=== PATIENT | male | born 1980 | race Two or more races ===

== ENCOUNTER 2019-04-14 22:05 | Emergency (ER) | payer SELFPAY ==
[~2019-04-14] VITALS: Ht 180.3 cm; Wt 99.8 kg
[2019-04-15 01:11] VITALS: BP 148/94
[2019-04-15] MEDS ORDERED: LIDOCAINE 1% HCL (LOCAL ANESTH.) INJ 20ML MDV IJ ONE (02:45)
[2019-04-15] MEDS ORDERED: cefTRIAXone SOD 1,000 MG VL IM ONE (03:40)
[2019-04-15] MEDS ORDERED: TETANUS-DIPTH-ACEL PERTUSSIS 0.5ML SYRG IM ONE (03:40)
== END 2019-04-15 04:03 | disposition home or self-care (01) ==
LOC: ER 22:11
DX: L03.012 Cellulitis of left finger (principal); R51 Headache; F17.210 Nicotine dependence, cigarettes, uncomplicated
CPT/HCPCS: 10060; 73140; 90471; 90715; 96372; 99283; C1887; J0696

== ENCOUNTER 2022-01-02 10:10 | Inpatient (IN) | payer MEDICAID, OTHER ==
[~2022-01-02] VITALS: Ht 180.3 cm; Wt 111.1 kg
[2022-01-02 11:48] LABS: Basophils # (auto) 0.1 10 ^3/uL (0-0.2); Basophils % (auto) 0.7 % (0.0-2.0); Eosinophils # (auto) 0.2 10 ^3/uL (0-0.8); Eosinophils % (auto) 1.6 % (0.0-7.0); Hematocrit 47.6 % (41.0-53.0); Hemoglobin 16.5 g/dL (13.5-17.5); Lymphocytes # (auto) 2.3 10 ^3/uL (0.4-5.4); Mean Corpuscular Hgb Conc. 34.6 g/dL (32.0-36.0); Mean Corpuscular Volume 92.6 fL (80.0-100.0); Monocytes # (auto) 1.2 10 ^3/uL (0-1.3); Monocytes % (auto) 8.8 % (0.0-12.0); Neutrophils # (auto) 9.7 10 ^3/uL (1.6-8.6); Neutrophils % (auto) 71.9 % (37.0-80.0); Nucleated Red Blood Cells % 0.1 %; Red Blood Cells 5.15 10^6/uL (4.5-5.90); Red Cell Distribution Width 12.6 % (11.8-14.3); White Blood Cell 13.5 10^3/uL (4.4-10.8)
[2022-01-02 12:30] LABS: Urine Bacteria NONE SEEN /hpf (None Seen); Urine Blood Negative /uL (Negative); Urine Mucus FEW (None Seen); Urine Specific Gravity 1.027 (1.001-1.035); Urine WBC 3 /hpf (0 - 3)
[2022-01-02 12:31] LABS: Albumin 3.4 g/dL (3.4-5.0); BUN/Creatinine Ratio 12.1; Calcium 8.9 mg/dL (8.5-10.1); Potassium 4.1 mmol/L (3.5-5.1)
[2022-01-02 12:34] LABS: Bilirubin, Total 0.7 mg/dL (0.2-1.0); Total Protein 7.7 g/dL (6.4-8.2)
[2022-01-02] MEDS ORDERED: CLINDAMYCIN 900MG IV 50 ML IV ONE (17:15)
[2022-01-02] MEDS ORDERED: IOHEXOL 300 MG/ML 100ML BOTTLE IJ ONE (17:52)
[2022-01-02] MEDS ORDERED: cefTRIAXone 1GM/50ML D5W 50 ML IV ONE (22:45)
[2022-01-02] MEDS ORDERED: MORPHINE SULFATE INJ 2 MG/ml SYRG IV PRN (22:45)
[2022-01-02] MEDS ORDERED: ONDANSETRON HCL 4 MG/2 ML VIAL IV PRN (22:45)
[2022-01-02] MEDS ORDERED: ACETAMINOPHEN 325 MG TAB PO PRN (22:45)
[2022-01-03] VITALS (7 sets, daily range): BP systolic 110–138; BP diastolic 74–96
[2022-01-03] MEDS ORDERED: INFLUENZA QUAD 2021-2022 0.5 ML SYRG IM ONE (05:30)
[2022-01-03] MEDS ORDERED: PNEUMOCOCCAL VACC POLYS 25 MCG/0.5 ML VIAL SUBCUT ONE (05:30)
[2022-01-03] MEDS: CLINDAMYCIN 600MG IV 50 ML IV SCH ×3 (05:49→21:29)
[2022-01-03 06:41] LABS: BUN/Creatinine Ratio 11.4; Calcium 8.7 mg/dL (8.5-10.1); Potassium 4.1 mmol/L (3.5-5.1)
[2022-01-03 06:47] LABS: Basophils # (auto) 0 10 ^3/uL (0-0.2); Basophils % (auto) 0.4 % (0.0-2.0); Eosinophils # (auto) 0.3 10 ^3/uL (0-0.8); Eosinophils % (auto) 2.5 % (0.0-7.0); Hematocrit 43.5 % (41.0-53.0); Hemoglobin 15.3 g/dL (13.5-17.5); Lymphocytes # (auto) 1.6 10 ^3/uL (0.4-5.4); Lymphocytes % (auto) 12.4 % (10.0-50.0); Mean Corpuscular Hemoglobin 32.3 pg (28.0-32.0); Mean Corpuscular Hgb Conc. 35.2 g/dL (32.0-36.0); Mean Corpuscular Volume 91.9 fL (80.0-100.0); Monocytes # (auto) 1.3 10 ^3/uL (0-1.3); Monocytes % (auto) 10.7 % (0.0-12.0); Neutrophils # (auto) 9.3 10 ^3/uL (1.6-8.6); Nucleated Red Blood Cells % 0.1 %; Red Blood Cells 4.73 10^6/uL (4.5-5.90); Red Cell Distribution Width 12.4 % (11.8-14.3); White Blood Cell 12.6 10^3/uL (4.4-10.8)
[2022-01-03] MEDS: cefTRIAXone 1GM/50ML D5W 50 ML IV SCH (09:00)
[2022-01-03] MEDS: ENOXAPARIN SOD 40 MG/0.4 ML SYRINGE SC SCH (10:00)
[2022-01-03] MEDS ORDERED: PANTOPRAZOLE 40 MG TAB PO SCH (10:00)
[2022-01-03] MEDS: HYDROcodone-ACET 5/325MG TAB PO PRN ×2 (10:17→19:49)
[2022-01-04 04:00] VITALS: BP 131/91
[2022-01-04] MEDS: CLINDAMYCIN 600MG IV 50 ML IV SCH (06:24)
[2022-01-04 09:00] VITALS: BP 126/83
[2022-01-04] MEDS: cefTRIAXone 1GM/50ML D5W 50 ML IV SCH (09:00)
[2022-01-04] MEDS: ENOXAPARIN SOD 40 MG/0.4 ML SYRINGE SC SCH (10:00)
[2022-01-04] MEDS: HYDROcodone-ACET 5/325MG TAB PO PRN (10:05)
[2022-01-04 13:00] VITALS: BP 129/89
[2022-01-04] MEDS: AMPICILLIN SOD 2GM INJ 2 GM in SODIUM CHL 0.9% 100 ML IV SCH ×3 (13:35→23:36)
[2022-01-04 17:00] VITALS: BP 137/94
[2022-01-04 22:00] VITALS: BP 133/92
[2022-01-05] MEDS: AMPICILLIN SOD 2GM INJ 2 GM in SODIUM CHL 0.9% 100 ML IV SCH ×4 (05:11→23:08)
[2022-01-05 05:12] VITALS: BP 135/107
[2022-01-05 09:00] VITALS: BP 144/107
[2022-01-05] MEDS: ENOXAPARIN SOD 40 MG/0.4 ML SYRINGE SC SCH (10:07)
[2022-01-05] MEDS: HYDROcodone-ACET 5/325MG TAB PO PRN (10:11)
[2022-01-05 13:00] VITALS: BP 141/95
[2022-01-05 16:47] VITALS: BP 137/105
[2022-01-05 21:35] VITALS: BP 146/93
[2022-01-06 04:38] VITALS: BP 130/102
[2022-01-06] MEDS: AMPICILLIN SOD 2GM INJ 2 GM in SODIUM CHL 0.9% 100 ML IV SCH ×3 (05:04→17:35)
[2022-01-06 08:10] VITALS: BP 143/105
[2022-01-06 08:32] VITALS: BP 143/105
[2022-01-06] MEDS: ENOXAPARIN SOD 40 MG/0.4 ML SYRINGE SC SCH (09:51)
[2022-01-06] MEDS: HYDROcodone-ACET 5/325MG TAB PO PRN ×2 (09:51→17:41)
[2022-01-06 13:00] VITALS: BP 137/91
[2022-01-06 17:22] VITALS: BP 147/108
[2022-01-06 22:00] VITALS: BP 125/92
[2022-01-07] MEDS: AMPICILLIN SOD 2GM INJ 2 GM in SODIUM CHL 0.9% 100 ML IV SCH ×2 (00:33→05:59)
[2022-01-07 05:00] VITALS: BP 138/100
[2022-01-07 09:00] VITALS: BP 136/89
[2022-01-07] MEDS: ENOXAPARIN SOD 40 MG/0.4 ML SYRINGE SC SCH (09:56)
[2022-01-07] MEDS ORDERED: CLIN300C8 PO (10:40)
[2022-01-07] MEDS ORDERED: AMPI500C8 PO (10:40)
[2022-01-07] MEDS ORDERED: HYDR-4902 PO (10:40)
[2022-01-07 13:09] VITALS: BP 138/98
== END 2022-01-07 14:00 | disposition home or self-care (01) | DRG 603 ==
LOC: ER 10:10 → OVERFLOW 22:41 → WEST WING 01-03 01:50
PROVIDERS: ADMIT Nurse Practitioner; ATTEND Family Medicine
DX: L03.115 Cellulitis of right lower limb (principal); L02.415 Cutaneous abscess of right lower limb; F17.210 Nicotine dependence, cigarettes, uncomplicated; E66.9 Obesity, unspecified; Z68.34 Body mass index [BMI] 34.0-34.9, adult; Z28.21 Immunization not carried out because of patient refusal; Z20.822 Contact with and (suspected) exposure to COVID-19
CPT/HCPCS: 36415; 73701; 80048; 80053; 81001; 83605; 85025; 85652; 86141; 87040; 87077; 87081; 87186; 87205; 93971; 96365; 96367; G0378; J0696; J3490